=== PATIENT | male | born 1975 | race African-American/Black ===

== ENCOUNTER 2017-09-28 13:08 | Emergency (ER) | payer OTHER ==
[~2017-09-28] VITALS: Ht 175.3 cm; Wt 127.7 kg
[~2017-09-28 13:08] MED LIST: "\\\"BP MED\\\""; Catapres PO; ENDOCET 5-3251 EACH PO; Flexeril PO; Folvite PO; LOPRESSOR25 MG PO; METOPROLOL TART25 MG PO; Motrin PO; NOHOMEMEDS; NORVASC10 MG PO; PRILOSEC20 MG PO; Phenergan PO; Protonix PO; Senokot,Sennagen PO; THERAGRAN1 TABLET PO; THIAMINE,VITAM100 MG PO; Thiamine,Vitamin B1 PO
[2017-09-28 17:06] LABS: HEMATOCRIT 43.7 % (38.0-50.0); MCH 32.1 PG (29.0-34.0); MCHC 33.6 G/DL (30.0-36.0); MCV 95.4 FL (86-99); MEAN PLAT.VOLUME 11.9 uM^3 (9.0-12.4); PLATELET COUNT 156 K/uL (156-360); RBC DIS.WIDTH-CV 12.7 % (11.8-14.6); RED BLOOD COUNT 4.58 M/uL (4.00-5.50); WHITE BLOOD COUNT 5.5 K/uL (4.1-10.2)
[2017-09-28 17:16] LABS: CHLORIDE 104 mEq/L (99-109); POTASSIUM 4.2 mEq/L (3.7-5.4); SODIUM 138 mEq/L (136-147)
[2017-09-28 17:17] LABS: GLUCOSE 98 mg/dL (70-99)
[2017-09-28 17:19] LABS: ANION GAP 9 MEQ/L (2-14)
[2017-09-28 17:21] LABS: GFR ESTIMATE (CALCULATED) > 59 mL/min/
[2017-09-28 17:22] LABS: UREA NITROGEN (BUN) 11 mg/dL (9-23)
[2017-09-28 18:27] LABS: ERTH.SED.RATE 11 MM/HR (0-15)
[2017-09-28] MEDS ORDERED: NAPROXEN500 MG PO (19:43)
[2017-09-28] MEDS ORDERED: FLEXERIL10 MG PO (19:43)
[2017-09-28] MEDS ORDERED: MEDROL DOSEPAK4 MG PO (19:43)
[2017-09-28 20:01] VITALS: BP 134/84
== END 2017-09-28 20:02 | disposition home or self-care (01) ==
LOC: EME 13:08
PROVIDERS: Physician Assistant Medical
DX: M54.5 Low back pain (principal); G89.29 Other chronic pain; F17.200 Nicotine dependence, unspecified, uncomplicated
CPT/HCPCS: 80048; 85027; 85651; 99281; 99284; J1885

== ENCOUNTER 2018-03-17 14:24 | Emergency (ER) | payer OTHER ==
[~2018-03-17] VITALS: Ht 175.3 cm; Wt 114.4 kg
[~2018-03-17 14:24] MED LIST changes: +FLEXERIL10 MG PO; +MEDROL DOSEPAK4 MG PO; +NAPROXEN500 MG PO
[2018-03-17 16:38] LABS: APPEARANCE CLOUDY ((CLEAR)); BILIRUBIN NEGATIVE; BLOOD NEGATIVE; COLOR YELLOW ((YELLOW)); GLUCOSE (STRIP) NEGATIVE; KETONES NEGATIVE; LEUKOCYTES LARGE; NITRITE NEGATIVE; PROTEIN (STRIP) >=500; SPECIFIC GRAVITY 1.001 (1.000-1.030); UROBILINOGEN 0.2 MG/DL (0.2-1.0)
[2018-03-17 16:56] LABS: BACTERIA NONE SEEN /HPF; EPITHELIAL CELLS RARE /HPF; HYALINE CASTS 0-5 /LPF; MUCUS NONE SEEN /LPF; RED BLOOD CELLS 0-5 /HPF (0-5); UCUL ADDED? YES
[2018-03-17] MEDS ORDERED: FLEXERIL10 MG PO (17:18)
[2018-03-17] MEDS ORDERED: LIDODERM 5% P1 PATCH TD (17:19)
[2018-03-17 17:28] VITALS: BP 155/93
== END 2018-03-17 17:29 | disposition home or self-care (01) ==
LOC: EME 14:24 → RME 14:24
PROVIDERS: Nurse Practitioner Family
DX: M54.12 Radiculopathy, cervical region (principal); M54.5 Low back pain; I10 Essential (primary) hypertension; K21.9 Gastro-esophageal reflux disease without esophagitis; Z86.73 Personal history of transient ischemic attack (TIA), and cerebral infarction without residual deficits; F17.200 Nicotine dependence, unspecified, uncomplicated; Z88.6 Allergy status to analgesic agent
CPT/HCPCS: 72100; 81003; 87086; 99281; 99285; J7512